=== PATIENT | male | born 2000 | race Two or more races ===

== ENCOUNTER → 2024-10-21 | Emergency (ER) | payer BC ==
[~2024-10-21] VITALS: Ht 180.3 cm; Wt 77.1 kg
[~2024-10-21] MED LIST: DEXAMETHASONE SODIUM PHOSPHATE 4 MG/ML VIAL IM SCH; DEXAMETHASONE SODIUM PHOSPHATE 4 MG/ML VIAL ONE; DIPHENHYDRAMINE HCL 50 MG/ML VIAL 1ML IV STA; DIPHENHYDRAMINE HCL 50 MG/ML VIAL 1ML ONE
== END | disposition left against medical advice (07) ==
LOC: ER 14:08
DX: T78.40XA Allergy, unspecified, initial encounter (principal); Z88.0 Allergy status to penicillin; Z91.018 Allergy to other foods